=== PATIENT | female | born 2000 | race Hispanic/Latino ===

== ENCOUNTER 2024-06-04 23:44 | Emergency (ER) | payer OTHER ==
[~2024-06-04] VITALS: Ht 162.6 cm; Wt 117.5 kg
[2024-06-05] MEDS: ONDANSETRON HCL INJ 2MG/ML 2ML 2 MG/ML VIAL IV STA (00:38)
[2024-06-05] MEDS: SODIUM CHLORIDE 0.9% 1000ML 1,000 ML IV ONE ×2 (00:38→04:25)
[2024-06-05] MEDS: Morphine 4mg INJECTION 4 MG/ML INJ IV ONE (00:38)
[2024-06-05 02:18] VITALS: PULSE 85; RESP 20; TEMP 99.2; O2SAT 97
[2024-06-05] MEDS ORDERED: Morphine 2mg Syringe 2 MG/ML SYR IV ONE (03:00)
[2024-06-05] MEDS ORDERED: TRAMADOL HCL 50 MG TAB ONE (03:16)
[2024-06-05] MEDS: TRAMADOL HCL 50 MG TAB PO ONE (03:18)
== END 2024-06-05 03:53 | disposition other institution (70) ==
LOC: FSED 23:47
DX: R10.2 Pelvic and perineal pain (principal); N80.9 Endometriosis, unspecified; D72.829 Elevated white blood cell count, unspecified; R11.2 Nausea with vomiting, unspecified; Z32.01 Encounter for pregnancy test, result positive
CPT/HCPCS: 36415; 76801; 76830; 80053; 81003; 81025; 83605; 84702; 85025; 86900; 87040; 99284; J0696; J2270; J2405; J7030